=== PATIENT | male | born 2000 | race Caucasian/White ===

== ENCOUNTER 2021-04-03 22:37 | Inpatient (IN) | payer OTHER, SELFPAY ==
[2021-04-03] MEDS ORDERED: Lidocaine 1% w/Epinephrine 1:100K 20 ML VIAL ONE (22:53)
[2021-04-03] MEDS ORDERED: Lorazepam 2 MG/ML VIAL ONE (23:04)
[2021-04-04 02:20] LABS: PTT 24.9 sec (22.9-36.1); Prothrombin Time 13.6 sec (12.0-14.7)
[2021-04-04 02:22] LABS: Hemoglobin 15.5 g/dL (14.0-18.0); Mean Corpuscular HGB CONC 34.8 g/dL (32.0-36.0); Mean Corpuscular Hemoglobin 31.8 pg (27.0-31.0); Mean Corpuscular Volume 91.3 fL (78.0-98.0); Platelet Count 356 thou/uL (130-400); RBC Distribution Width 11.1 % (11.5-14.5); Red Blood Cell (RBC) Count 4.87 mill/uL (4.70-6.10); White Blood Cell (WBC) Count 28.8 thou/uL (4.8-10.8)
[2021-04-04] MEDS ORDERED: CEFAZOLIN 1 GM VIAL ONE (02:29)
[2021-04-04] MEDS ORDERED: Ondansetron ODT 4 MG TAB PO PRN (02:31)
[2021-04-04] MEDS ORDERED: Dextrose 5% in Water 1,000 ML IV PRN (02:31)
[2021-04-04] MEDS ORDERED: Dextrose 50% Abboject 50 ML SYRINGE SLOW IVP PRN (02:31)
[2021-04-04] MEDS ORDERED: hydrALAZINE 20 MG/ML VIAL SLOW IVP PRN (02:31)
[2021-04-04 02:33] LABS: ALT (SGPT) 18 U/L (8-55); AST (SGOT) 28 U/L (5-34); Albumin 4.8 g/dL (3.5-5.0); Alkaline Phosphatase 87 U/L (40-110); Anion Gap 19 mmol/L (10-20); BUN (Urea Nitrogen) 11 mg/dL (8.9-20.6); Bilirubin, Total 0.4 mg/dL (0.2-1.2); Calc. Creatinine Clearance 0 mL/min (70-130); Calcium 9.9 mg/dL (7.8-10.44); Carbon Dioxide 24 mmol/L (22-29); Chloride 100 mmol/L (98-107); Globulin 3.9 g/dL (2.4-3.5); Glucose 145 mg/dL (70-105); Potassium 3.9 mmol/L (3.5-5.1); Protein, Total 8.7 g/dL (6.0-8.3); Sodium 139 mmol/L (136-145)
[2021-04-04] MEDS ORDERED: traMADol HCl 50 MG TAB PO PRN (02:37)
[2021-04-04] MEDS ORDERED: CEFAZOLIN 2 GM, Admixture Fee 1 EACH in Sodium Chloride 0.9% 100 ML IVPB SCH (03:00)
[2021-04-04 03:17] LABS: Band 9 % (5-11); Lymphocytes 7 % (21-51); MDiff Complete? YES; Monocytes 3 % (0-10); Neutrophil 80 % (42-75); Platelet Morphology Comment Appears Adequate; RBC Morphology Normal; Reactive Lymphocytes 1 % (0-10)
[2021-04-04] MEDS ORDERED: Lidocaine 0.5%/Epinephrine 1:200,000 50 ml Vial ONE (03:54)
[2021-04-04] MEDS ORDERED: Neomycin-Polymyxin 1 ML AMP ONE ×3 (03:54→06:26)
[2021-04-04] MEDS ORDERED: Thrombin 5000 UNITS/5 ML VIAL ONE (03:54)
[2021-04-04] MEDS ORDERED: Bacitracin Zinc Ointment 30 gm TUBE ONE (03:55)
[2021-04-04] MEDS ORDERED: Midazolam HCl 2 mg/2 ml Vial ONE ×2 (04:12→07:28)
[2021-04-04] MEDS ORDERED: Fentanyl 100 MCG/2 ML VIAL ONE ×3 (04:12→09:46)
[2021-04-04 04:15] LABS: Alcohol Less than 10 mg/dL (Less than 10); Anion Gap 18 mmol/L (10-20); BUN (Urea Nitrogen) 10 mg/dL (8.9-20.6); Calc. Creatinine Clearance 0 mL/min (70-130); Calcium 9.6 mg/dL (7.8-10.44); Carbon Dioxide 24 mmol/L (22-29); Chloride 100 mmol/L (98-107); Glucose 134 mg/dL (70-105); Magnesium 1.6 mg/dL (1.6-2.6); Phosphorus 2.7 mg/dL (2.3-4.7); Potassium 4.1 mmol/L (3.5-5.1); Sodium 138 mmol/L (136-145)
[2021-04-04 04:18] LABS: Amphetamine Not Detected (NotDetected); Barbiturates Screen Not Detected (NotDetected); Benzodiazepine Screen Not Detected (NotDetected); Cocaine Metabolite Screen Not Detected (NotDetected); Methadone Not Detected (NotDetected); Methamphetamine Not Detected (NotDetected); Opiate Screen Not Detected (NotDetected); Oxycodone Screen Not Detected (NotDetected); Phencyclidine (PCP) Not Detected (NotDetected); THC/Cannabinoid Screen Not Detected (NotDetected); Tricyclic Screen Not Detected (NotDetected)
[2021-04-04 04:24] LABS: #Lymphocytes 0.6 thou/uL (1.20-3.40); #Monocytes 0.7 thou/uL (0.11-0.59); #Neutrophils 19.6 thou/uL (1.40-6.50); %Basophils 0.1 % (0.0-1.0); %Eosinophils 0.1 % (0.0-10.0); %Lymphocytes 2.6 % (21.0-51.0); %Monocytes 3.5 % (0.0-10.0); %Neutrophils 93.7 % (42.0-75.0); Hemoglobin 14.8 g/dL (14.0-18.0); Mean Corpuscular HGB CONC 34.1 g/dL (32.0-36.0); Mean Corpuscular Hemoglobin 31.3 pg (27.0-31.0); Mean Corpuscular Volume 91.7 fL (78.0-98.0); Mean Platelet Volume 8.6 fL (7.4-10.4); Platelet Count 286 thou/uL (130-400); RBC Distribution Width 11.2 % (11.5-14.5); Red Blood Cell (RBC) Count 4.73 mill/uL (4.70-6.10); White Blood Cell (WBC) Count 20.9 thou/uL (4.8-10.8)
[2021-04-04] MEDS ORDERED: Lidocaine 1% PF 5 ML VIAL ONE (04:32)
[2021-04-04] MEDS ORDERED: ePHEDrine 50 MG/ML VIAL ONE (04:32)
[2021-04-04] MEDS ORDERED: PHENYLEPHRINE-NS 100 MCG/ML 10 ML SYRINGE ONE (04:32)
[2021-04-04] MEDS ORDERED: Rocuronium Bromide 10 MG/ML (10ML VIAL) ONE (04:32)
[2021-04-04] MEDS ORDERED: PROPOFOL 200 MG/20 ML VIAL ONE (04:32)
[2021-04-04] MEDS ORDERED: Vecuronium 10 MG VIAL ONE (04:32)
[2021-04-04] MEDS ORDERED: Esmolol 100 MG/10 ML VIAL ONE (04:32)
[2021-04-04] MEDS ORDERED: Succinylcholine 200 MG/10 ml SYRINGE FS ONE (04:32)
[2021-04-04 04:34] LABS: PTT 25.9 sec (22.9-36.1)
[2021-04-04] MEDS ORDERED: levETIRAcetam in NS 100 ML ONE (06:30)
[2021-04-04 07:02] LABS: SARS-CoV-2 NAA Rapid Test Not Detected (NotDetected)
[2021-04-04] MEDS ORDERED: Propofol 1,000 MG/100 ML VIAL IV ONE (08:03)
[2021-04-04] MEDS: Sodium Chloride 0.9% 1,000 ML IV SCH ×2 (08:15→17:07)
[2021-04-04] MEDS: niCARdipine 25 MG in Sodium Chloride 0.9% 250 ML 240 ML IVPB SCH ×2 (08:35→11:22)
[2021-04-04 08:53] VITALS: BMI 25.0
[2021-04-04 08:55] LABS: Actual Bicarbonate (HCO3a) 21.2 mEq/L (22-28); Base Excess (BEa) -3.4 mEq/L (-2.0 to +3.0); CO2 Tension 36.9 mmHg (35.0-45.0); Calcium, Ionized (arterial) 1.06 mmol/L (1.12-1.30); Carboxyhemoglobin (COHb) 0.1 gm% (0.0-3.0); Hemoglobin (Hb) 12.9 g/dL (14.0-18.0); O2 Tension (PaO2), arterial 195.6 mmHg (80.0-100.0); Potassium - ABG Lab 4.94 mmol/L (3.70-5.30); Puncture Site ALINE; pH, Arterial 7.38 (7.35-7.45)
[2021-04-04 08:58] LABS: ALV-art Gradient 43.475 mmHg (0-20)
[2021-04-04] MEDS ORDERED: Famotidine/PF 20 mg/2ml Vial SLOW IVP SCH (10:00)
[2021-04-04] MEDS ORDERED: Electrolyte Replacement Protocol 1 EACH FS ONE (10:28)
[2021-04-04] MEDS ORDERED: Electrolyte Replacement Protocol FS PRN (11:15)
[2021-04-04] MEDS: Ondansetron PF 4 MG/2 ML Vial IVP PRN (11:29)
[2021-04-04] MEDS: Fentanyl 100 MCG/2 ML VIAL SLOW IVP PRN ×5 (11:29→23:18)
[2021-04-04] MEDS: Labetalol HCl 100 MG/20 ML VIAL SLOW IVP PRN ×2 (13:30→15:02)
[2021-04-04] MEDS: niCARdipine 50 MG in Sodium Chloride 0.9% 250 ML 230 ML IVPB SCH ×2 (14:12→23:12)
[2021-04-04] MEDS ORDERED: FLU VACC QS2021-22(6MOS UP)/PF 60 MCG/0.5 ML SYRINGE IM ONE (14:30)
[2021-04-04] MEDS ORDERED: Magnesium 2 GM/50 ML 2 GM in Premix Bag 1 BAG IVPB SCH (16:00)
[2021-04-04] MEDS: levETIRAcetam in NS 500 MG in Premix Bag 1 BAG IVPB SCH (17:37)
[2021-04-04] MEDS ORDERED: levETIRAcetam in NS 500 MG in Premix Bag 1 BAG IVPB SCH (18:00)
[2021-04-04] MEDS: Famotidine/PF 20 mg/2ml Vial SLOW IVP SCH (21:42)
[2021-04-05] MEDS: niCARdipine 50 MG in Sodium Chloride 0.9% 250 ML 230 ML IVPB SCH (03:23)
[2021-04-05] MEDS: Fentanyl 100 MCG/2 ML VIAL SLOW IVP PRN (03:57)
[2021-04-05 04:07] LABS: #Lymphocytes 1.2 thou/uL (1.20-3.40); #Monocytes 1.5 thou/uL (0.11-0.59); #Neutrophils 13.7 thou/uL (1.40-6.50); %Basophils 0.1 % (0.0-1.0); %Eosinophils 0.1 % (0.0-10.0); %Lymphocytes 7.1 % (21.0-51.0); %Monocytes 9.2 % (0.0-10.0); %Neutrophils 83.5 % (42.0-75.0); Hemoglobin 11.8 g/dL (14.0-18.0); Mean Corpuscular HGB CONC 33.9 g/dL (32.0-36.0); Mean Corpuscular Hemoglobin 31.6 pg (27.0-31.0); Mean Corpuscular Volume 93.2 fL (78.0-98.0); Mean Platelet Volume 7.7 fL (7.4-10.4); Platelet Count 257 thou/uL (130-400); RBC Distribution Width 11.1 % (11.5-14.5); Red Blood Cell (RBC) Count 3.73 mill/uL (4.70-6.10); White Blood Cell (WBC) Count 16.5 thou/uL (4.8-10.8)
[2021-04-05 04:35] LABS: Anion Gap 11 mmol/L (10-20); BUN (Urea Nitrogen) 8 mg/dL (8.9-20.6); Calc. Creatinine Clearance 179 mL/min (70-130); Calcium 8.8 mg/dL (7.8-10.44); Carbon Dioxide 25 mmol/L (22-29); Chloride 105 mmol/L (98-107); Glucose 134 mg/dL (70-105); Potassium 4.1 mmol/L (3.5-5.1); Sodium 137 mmol/L (136-145)
[2021-04-05] MEDS: Acetaminophen 500 MG TAB PO SCH ×6 (05:47→18:10)
[2021-04-05] MEDS: Labetalol HCl 100 MG/20 ML VIAL SLOW IVP PRN (05:52)
[2021-04-05] MEDS: Famotidine 20 MG TAB PO SCH ×3 (09:00→20:48)
[2021-04-05] MEDS: Ondansetron PF 4 MG/2 ML Vial IVP PRN ×2 (09:33→21:01)
[2021-04-05] MEDS: Famotidine/PF 20 mg/2ml Vial SLOW IVP SCH ×2 (09:33→20:52)
[2021-04-05] MEDS: Cephalexin 250 MG CAP PO SCH ×2 (11:42→18:10)
[2021-04-05] MEDS: traMADol HCl 50 MG TAB PO PRN (11:53)
[2021-04-05] MEDS ORDERED: Magnesium 2 GM/50 ML 2 GM in Premix Bag 1 BAG IVPB SCH (14:45)
[2021-04-05] MEDS: levETIRAcetam in NS 500 MG in Premix Bag 1 BAG IVPB SCH ×2 (17:29→18:11)
[2021-04-05] MEDS: Cyclobenzaprine 10 MG TAB PO PRN (22:44)
[2021-04-06] MEDS: Acetaminophen 500 MG TAB PO SCH ×4 (00:07→17:44)
[2021-04-06] MEDS: Cephalexin 250 MG CAP PO SCH ×4 (00:07→17:44)
[2021-04-06] MEDS: levETIRAcetam in NS 500 MG in Premix Bag 1 BAG IVPB SCH ×2 (05:57→17:53)
[2021-04-06 06:17] LABS: #Basophils 0.1 thou/uL (0.0-0.2); #Eosinphils 0.1 thou/uL (0.0-0.7); #Lymphocytes 2.2 thou/uL (1.20-3.40); #Monocytes 1.5 thou/uL (0.11-0.59); #Neutrophils 9.5 thou/uL (1.40-6.50); %Basophils 0.4 % (0.0-1.0); %Eosinophils 0.4 % (0.0-10.0); %Lymphocytes 16.7 % (21.0-51.0); %Monocytes 11.2 % (0.0-10.0); %Neutrophils 71.3 % (42.0-75.0); Hemoglobin 11.7 g/dL (14.0-18.0); Mean Corpuscular HGB CONC 34.6 g/dL (32.0-36.0); Mean Corpuscular Volume 92.7 fL (78.0-98.0); Mean Platelet Volume 7.6 fL (7.4-10.4); Platelet Count 253 thou/uL (130-400); Red Blood Cell (RBC) Count 3.64 mill/uL (4.70-6.10); White Blood Cell (WBC) Count 13.3 thou/uL (4.8-10.8)
[2021-04-06 06:31] LABS: Anion Gap 9 mmol/L (10-20); BUN (Urea Nitrogen) 5 mg/dL (8.9-20.6); Calc. Creatinine Clearance 186 mL/min (70-130); Calcium 8.6 mg/dL (7.8-10.44); Carbon Dioxide 31 mmol/L (22-29); Chloride 103 mmol/L (98-107); Glucose 112 mg/dL (70-105); Magnesium 2.2 mg/dL (1.6-2.6); Potassium 3.9 mmol/L (3.5-5.1); Sodium 139 mmol/L (136-145)
[2021-04-06] MEDS: traMADol HCl 50 MG TAB PO PRN (06:54)
[2021-04-06] MEDS: Famotidine/PF 20 mg/2ml Vial SLOW IVP SCH (09:20)
[2021-04-06] MEDS: Famotidine 20 MG TAB PO SCH (09:21)
[2021-04-06] MEDS: Labetalol HCl 100 MG/20 ML VIAL SLOW IVP PRN (09:30)
[2021-04-06 16:31] VITALS: BP 139/82; TEMP 98.5
[2021-04-06] MEDS: Cyclobenzaprine 10 MG TAB PO PRN (17:44)
[2021-04-07 13:30] LABS: Actual Bicarbonate (HCO3a) 19.4 mEq/L (22-28); Analyzer IN Cardio OR; Base Excess (BEa) -4.7 mEq/L (-2.0 to +3.0); CO2 Tension 33.2 mmHg (35.0-45.0); Calcium, Ionized (arterial) 1.07 mmol/L (1.12-1.30); Carboxyhemoglobin (COHb) 0.6 gm% (0.0-3.0); Hemoglobin (Hb) 13.2 g/dL (14.0-18.0); Potassium - ABG Lab 6.64 mmol/L (3.70-5.30); pH, Arterial 7.39 (7.35-7.45)
[2021-04-07 13:31] LABS: O2 Tension (PaO2), arterial 554.4 mmHg (80.0-100.0); Puncture Site Arterial Line
== END 2021-04-06 17:55 | disposition home or self-care (01) | DRG 25 ==
LOC: ERS 22:37 → ERHOLD 04-04 02:31 → SURG A 04-04 05:04 → CCU 04-04 07:41 → SURG A 04-05 16:07
PROVIDERS: ADMIT Surgery; ATTEND Surgery
PROC: 0W310ZZ Control Bleeding in Cranial Cavity, Open Approach (ICD-10-PCS; principal; 2021-04-04)
PROC: 0NS Head and Facial Bones, Reposition (ICD-10-PCS; 2021-04-04)
PROC: 0D9670Z Drainage of Stomach with Drainage Device, Via Natural or Artificial Opening (ICD-10-PCS; 2021-04-04)
PROC: 5A1935Z Respiratory Ventilation, Less than 24 Consecutive Hours (ICD-10-PCS; 2021-04-04)
DX: S06.5X0A Traumatic subdural hemorrhage without loss of consciousness, initial encounter (principal); S06.A0XA Traumatic brain compression without herniation, initial encounter; J96.90 Respiratory failure, unspecified, unspecified whether with hypoxia or hypercapnia; S02.19XA Other fracture of base of skull, initial encounter for closed fracture; Z20.822 Contact with and (suspected) exposure to COVID-19; S01.81XA Laceration without foreign body of other part of head, initial encounter; W51.XXXA Accidental striking against or bumped into by another person, initial encounter; R40.2362 Coma scale, best motor response, obeys commands, at arrival to emergency department; R40.2142 Coma scale, eyes open, spontaneous, at arrival to emergency department; R40.2252 Coma scale, best verbal response, oriented, at arrival to emergency department; S06.6X0A Traumatic subarachnoid hemorrhage without loss of consciousness, initial encounter; R41.82 Altered mental status, unspecified; R13.19 Other dysphagia
CPT/HCPCS: 36415; 36416; 70450; 70486; 71045; 72125; 80048; 80053; 80306; 80307; 82805; 83735; 84100; 85025; 85610; 85730; 90471; 90686; 94002; C1713; G0008; J0360; J0690; J1165; J1953; J2001; J2060; J2250; J2405; J2704; J3010; J3475; J3490; J7050; S0028; U0002